=== PATIENT | female | born 1945 | race Caucasian/White ===

== ENCOUNTER → 2017-06-20 | Outpatient (CLI) | payer MEDICARE ==
[~2017-06-20] MED LIST: ASCO-182 PO; AZIT-18 PO; CHOL10005 PO; DIPH0.5D12 IM; DSF PO; FLAX100038 PO; GLUC15002 PO; IBUP800T37 PO; KET10 PO; LACT1CAP47 PO; PER PO; PNEU0.5D3 IM; PROBIOTIC1 EACH PO; ROSU20TA13 PO; SIMV-49 PO; SPIR1TAB26 PO; SPIR1TAB28 PO; SPIR25TA78 PO; THYROSTIM PO; VITE400 PO; [UNRECOGNIZED DRUG - CODE] PO; [UNRECOGNIZED DRUG - OTHER] PO; [UNRECOGNIZED DRUG - OTHER] PO; [UNRECOGNIZED DRUG - OTHER] PO; [UNRECOGNIZED DRUG - OTHER] PO; [UNRECOGNIZED DRUG - OTHER] PO; [UNRECOGNIZED DRUG - REMARK] PO; [UNRECOGNIZED DRUG - SUPPLY] PO
--- NOTE | 2017-06-20 11:15 | RADIOLOGY IMAGING REPORT ---
[place] [facility] [place]IENT NAME: Korina Vicente : 1945 MR: [id number] V: [id number] EXAM DATE: ORDERING PHYSICIAN: TAURUS PEREZ TECHNOLOGIST: Location: [facility] Patient: Korina Vicente : 1945 Visit/Account:[id number] Date of Sevice: 06/20/2017 DEXA Scan Clinical history: Osteopenia. Comparison: DEXA scan from 02/06/2015. LUMBAR SPINE: The bone mineral density (BMD) measured from L1-L4 correlates with a Z-score of 2.7 and a T-score of 1.7 which is Normal as defined by the World Health Organization. The corresponding risk of fracture in the lumbar spine is Not increased compared with a young adult reference population. This value rader s decrease by 1.1 % since the prior study. More than 5% change is considered significant. HIP: Bone mineral density (BMD) measured in the LEFT total hip region correlates with a Z-score 2.1 and a T-score of one which is normal as defined by the World Health Organization. The corresponding risk of fracture in the hip is Not i ncreased compared to a young adult reference population. This value has decrease by 0.1 % since the p rior study. More than 5% change is considered significant. T score left femoral neck 0.0 Bone mineral density (BMD) measured in the Femoral Neck region measures 1.036 g/cm?. IMPRESSION: 1. Lumbar spine: Normal. There has been 1.1% decrease in the bone mineral density since the previou s exam. 2. Left Total Hip: Normal. There has been 0.1% decrease in the bone mineral density since the previ ous exam. 3. Femoral Neck: Bone Mineral Density is 1.036 g/cm? The next DEXA scan of this patient should include the following sites: L1-L4 and the left hip. FRAX? WHO Fracture Risk Assessment Tool link: <http://www.shef.ac.uk/FRAX/tool.jsp?locationValue=9> PLEASE NOTE: 1) The World Health Organization defines low BMD as follows: T-score Normal > -1 Osteopenia < -1 and > -2.5 Osteoporosis < -2.5 without fractures Established osteoporosis < -2.5 with fractures 2) In general, you may wish to consider: Diagnosis Treatment Follow-up DEXA Normal BMD Prevention 2-3 years Osteopenia Prevention/therapy 1-2 years Osteoporosis Therapy Yearly 3) Fracture risk estimated from the T-score is more accurate for vertebral fractures (often spontane ous) than for hip fractures. Report Dictated By: Vita Morales MD at 06/20/2017 11:10 AM Report E-Signed By: Vita Morales MD at 06/20/2017 11:12 AM WSN:[email or web address]
== END ==
LOC: RAD 02:04
PROVIDERS: ATTEND Emergency Medicine
DX: Z13.820 Encounter for screening for osteoporosis (principal); M85.80 Other specified disorders of bone density and structure, unspecified site; Z78.0 Asymptomatic menopausal state
CPT/HCPCS: 77080

== ENCOUNTER → 2017-06-30 | Outpatient (CLI) | payer MEDICARE ==
--- NOTE | 2017-07-01 15:33 | RADIOLOGY IMAGING REPORT ---
FACILITY: [facility] PATIENT NAME: ULI BLANKENSHIP : [id number] MR: [id number] V: [id number] EXAM DATE: [id number] ORDERING PHYSICIAN: TAURUS PEREZ TECHNOLOGIST: Jennifer Lewis PROCEDURE:BILATERAL DIGITAL SCREENING MAMMOGRAM WITH CAD ASSISTED INTERPRETATION & 3D TOMOSYNTHESIS COMPARISON:03/18/09, 11/28/02 INDICATIONS:screening FINDINGS: Breast parenchyma density is predominantly fatty. There are no mammographic findings concerning for malignancy. There is no significant interval change. DIAGNOSTIC CATEGORY 1--NEGATIVE. RECOMMENDATIONS: ROUTINE MAMMOGRAM AND CLINICAL EVALUATION IN 1 YR. IMPRESSION: BIRADS 1: Negative Dictated by: Jean Villa on 07/01/2017 at 13:04 Transcribed by: JAZMIN on 07/01/2017 at 14:47 Approved by: Jean Villa on 07/01/2017 at 15:32 [facility]
== END ==
LOC: MAMO 00:44
PROVIDERS: ATTEND Emergency Medicine
DX: Z12.31 Encounter for screening mammogram for malignant neoplasm of breast (principal)
CPT/HCPCS: 77063; 77067

== ENCOUNTER → 2017-08-22 | Outpatient (CLI) | payer MEDICARE | LOC: LAB 11:30 | PROVIDERS: ATTEND Emergency Medicine | DX: E78.5 Hyperlipidemia, unspecified (principal) | CPT/HCPCS: 36415; 82465; 83718; 84478 ==

== ENCOUNTER → 2018-11-03 | Outpatient (CLI) | payer MEDICARE ==
[~2018-11-03] MED LIST changes: -DIPH0.5D12 IM; +DIPH0.5S2 IM; -ROSU20TA13 PO; +ROSU20TA5 PO; -SPIR25TA78 PO; +SPIR25TA80 PO
--- NOTE | 2018-11-03 10:24 | RADIOLOGY IMAGING REPORT ---
FACILITY: [facility] - [place] PATIENT NAME: Korina Vicente : 1945 MR: [id number] V: [id number] EXAM DATE: ORDERING PHYSICIAN: INGRID DOMINGUEZ TECHNOLOGIST: Location: [facility] Patient: Korina Vicente : 1945 Visit/Account:[id number] Date of Sevice: 11/03/2018 CHEST PA LAT HISTORY: Abnormal lung sounds. Dyspnea on exertion. COMPARISON: None FINDINGS: Cardiomediastinal contours: The heart size is normal. Lungs and pleura: There is no finding of an infiltrate, lymphadenopathy or pleural effusion. Bones/soft tissues: There are no findings of a fracture. Abdomen: There are surgical clips in right upper quadrant. IMPRESSION: No active disease in the chest. Report Dictated By: Petey Noe MD at 11/03/2018 10:16 AM Report E-Signed By: Petey Noe MD at 11/03/2018 10:16 AM WSN:[email or web address]
== END ==
LOC: US 09:39
PROVIDERS: ATTEND Family Medicine
DX: I35.1 Nonrheumatic aortic (valve) insufficiency (principal)
CPT/HCPCS: 71046; 93306